=== PATIENT | female | born 1950 | race Caucasian/White ===

== ENCOUNTER 2018-03-29 16:36 | Emergency (ER) | payer BC, MEDICARE ==
[2018-03-29] MEDS ORDERED: NS 0.9% 1000 ML* 1,000 ML IV ONE (17:58)
[2018-03-29 18:30] LABS: ABS Basophils 0 10^3/ul (0-0.2); ABS Eosinophils 0 10^3/ul (0-0.6); ABS Lymphocytes 1.8 10^3/ul (1.0-4.8); ABS Monocytes 0.6 10^3/ul (0-0.8); ABS Neutrophils 5.7 10^3/ul (1.5-7.7); ABS Nucleated RBC 0 10^3/ul; Eosinophil % 0.1 % (0-6); Hematocrit 45 % (35-47); Hemoglobin 15.4 g/dl (12.0-16.0); Lymphocyte % 22.1 % (25-47); Mean Corpuscular HGB Conc 34 g/dl (31-36); Mean Corpuscular Hemoglobin 31 pg (27-31); Mean Corpuscular Volume 91 fL (80-97); Mean Platelet Volume 8.2 um3 (7.4-10.4); Nucleated Red Blood Cells % 0.1; Platelet Count 200 10^3/ul (150-450); Red Blood Count 4.95 10^6/ul (4.0-5.4); Red Cell Distribution Width 13 % (10.5-15); White Blood Count 8.2 10^3/ul (3.5-10.8)
[2018-03-29 18:47] LABS: EGFR Non-African American 88.1 (>60)
[2018-03-29] MEDS ORDERED: Metoclopramide IV* 5 MG/ML 2 ML VIAL IV ONE (18:54)
[2018-03-29] MEDS ORDERED: Iohexol 300* (CONTRAST) 10 ML SDV IV ONE (19:08)
[2018-03-29 19:32] LABS: Urine Appearance Clear; Urine Blood 1+ (Negative); Urine Color Yellow; Urine Ketones 2+ (Negative); Urine Protein Negative (Negative); Urine Specific Gravity 1.025 (1.010-1.030); Urine Urobilinogen Negative (Negative)
--- NOTE | 2018-03-29 20:21 | RAD ---
CLINICAL HISTORY: Lower abdominal pain in a woman with a history of diverticulitis COMPARISON: Similar CT examination July 29, 2011 TECHNIQUE: Contrast enhanced CT examination of the abdomen and pelvis from the lung bases through the initial tuberosities. The patient received 79 mL Omnipaque 300 intravenously prior to imaging.The patient received oral contrast as well prior to imaging. FINDINGS: VISUALIZED LUNG BASES: The visualized lung bases are grossly clear. There is no pleural effusion. ABDOMEN AND PELVIS: The liver, spleen, pancreas and adrenal glands are grossly normal in appearance. The gallbladder is normal. The kidneys are normal in appearance without focal mass, calcification or signs of hydronephrosis. Evaluation of the gastrointestinal tract is limited without oral contrast. There is apparent circumferential thickening of the gastric wall measuring 1.3 cm in diameter (image 18 of 81). The small and large bowel are not distended. The appendix is not discretely visualized. There are scattered rectosigmoid diverticula, some with inspissated contrast, but no definite wall thickening or pericolonic abscess. There is no gross retroperitoneal or mesenteric lymphadenopathy. The pelvic viscera is normal in appearance. The moderately calcified abdominal aorta and iliac arteries are normal in course and diameter. Degenerative changes include multilevel loss of intervertebral disc height involving the lower thoracic and lumbar spine.There are no sinister bone lesions. IMPRESSION: 1. Apparent circumferential thickening of the gastric wall at the level of the gastric fundus. This could be seen in the setting of gastritis or may simply be the consequence of decompression. 2. Diverticulosis without definite inflammatory changes characteristic of diverticulitis. 3. The appendix is not discretely visualized. 4. Additional chronic and degenerative changes described in body the report unlikely to be directly related to the patient's current clinical presentation.
[2018-03-29 20:34] VITALS: BP 113/49
--- NOTE | 2018-03-29 20:38 | ED ---
Madina Daly Gabriel, scribed for Papi Alexander MD on 03/29/18 at 1903 . GI/ HPI - HPI Summary HPI Summary: This patient is a 68 year old F presenting to [facility] accompanied by another woman with a chief complaint of a n/v/d that began two days ago. Pt states she had general malaise that began 03-25-18, the next day she had severe fatigue, and then the following day current symptoms began. The patient rates the pain 3/ 10 in severity. Patient reports ABD cramping. Hx diverticulitis and perforated bowel. - History of Current Complaint Chief Complaint: EDNauseaVomitDiarrh Time Seen by Provider: 03/29/18 18:50 Stated Complaint: VOMITING/DIARRHEA Hx Obtained From: Patient Onset/Duration: Still Present Timing: Constant Severity: Moderate Current Severity: Moderate Pain Intensity: 3 Location of Pain: Diffuse Associated Signs and Symptoms: Positive: Other: - fatigue, general ill feeling - Allergy/Home Medications Allergies/Adverse Reactions: Allergies Allergy/AdvReac Type Severity Reaction Status Date / Time No Known Allergies Allergy Verified 03/29/18 16:42 PMH/Surg Hx/FS Hx/Imm Hx Endocrine/Hematology History: Denies: Hx Coagulopothy, Autoimmune Disease GI History: Reports: Hx Diverticulosis History: Denies: Hx Acute Renal Failure, Hx Benign Prostatic Hyperplasia Musculoskeletal History: Denies: Hx Rheumatoid Arthritis Sensory History: Reports: Hx Contacts or Glasses Opthamlomology History: Reports: Hx Contacts or Glasses EENT History: Denies: Hx Deafness Psychiatric History: Denies: Hx Attention Deficit Hyperactivity Disorder - Cancer History Hx Chemotherapy: No Hx Radiation Therapy: No Infectious Disease History: Yes Infectious Disease History: Denies: Traveled Outside the [place] in Last 30 Days - Family History Known Family History: Negative: Respiratory Disease, Seizure Disorder - Social History Alcohol Use: Occasionally Hx Substance Use: No Substance Use Type: Reports: None Hx Tobacco Use: No Smoking Status (MU): Never Smoked Tobacco Review of Systems Constitutional: Other - general malaise Positive: Fatigue Positive: Abdominal Pain, Vomiting, Diarrhea, Nausea All Other Systems Reviewed And Are Negative: Yes Physical Exam - Summary Physical Exam Summary: VITAL SIGNS: Reviewed. GENERAL: Patient is a well-developed and nourished female who is lying comfortable in the stretcher. Patient is not in any acute respiratory distress. HEAD AND FACE: No signs of trauma. No ecchymosis, hematomas or skull depressions. No sinus tenderness. EYES: PERRLA, EOMI x 2, No injected conjunctiva, no nystagmus. EARS: Hearing grossly intact. Ear canals and tympanic membranes are within normal limits. MOUTH: Oropharynx within normal limits. NECK: Supple, trachea is midline, no adenopathy, no JVD, no carotid bruit, no c- spine tenderness, neck with full ROM. CHEST: Symmetric, no tenderness at palpation LUNGS: Clear to auscultation bilaterally. No wheezing or crackles. CVS: Regular rate and rhythm, S1 and S2 present, no murmurs or gallops appreciated. ABDOMEN: Soft, non-tender. No signs of distention. No rebound no guarding, and no masses palpated. Bowel sounds are normal. EXTREMITIES: FROM in all major joints, no edema, no cyanosis or clubbing. NEURO: Alert and oriented x 3. No acute neurological deficits. Speech is normal and follows commands. SKIN: Dry and warm Triage Information Reviewed: Yes Vital Signs On Initial Exam: Initial Vitals Temp Pulse Resp BP Pulse Ox 99.8 F 84 16 145/76 99 03/29/18 16:39 03/29/18 16:39 03/29/18 16:39 03/29/18 16:39 03/29/18 16:39 Vital Signs Reviewed: Yes Diagnostics - Vital Signs Vital Signs Temp Pulse Resp BP Pulse Ox 03/29/18 16:39 99.8 F 84 16 145/76 99 - Laboratory Lab Results: Lab Results 03/29/18 03/29/18 03/29/18 Range/Units 18:21 18:21 18:21 WBC 8.2 (3.5-10.8) 10^3/ul RBC 4.95 (4.0-5.4) 10^6/ul Hgb 15.4 (12.0-16.0) g/dl Hct 45 (35-47) % MCV 91 (80-97) fL MCH 31 (27-31) pg MCHC 34 (31-36) g/dl RDW 13 (10.5-15) % Plt Count 200 (150-450) 10^3/ul MPV 8.2 (7.4-10.4) um3 Neut % (Auto) 70.4 (38-83) % Lymph % (Auto) 22.1 L (25-47) % [place] % (Auto) 7.1 H (0-7) % Eos % (Auto) 0.1 (0-6) % Baso % (Auto) 0.3 (0-2) % Absolute Neuts (auto) 5.7 (1.5-7.7) 10^3/ul Absolute Lymphs (auto) 1.8 (1.0-4.8) 10^3/ul Absolute Monos (auto) 0.6 (0-0.8) 10^3/ul Absolute Eos (auto) 0 (0-0.6) 10^3/ul Absolute Basos (auto) 0 (0-0.2) 10^3/ul Absolute Nucleated RBC 0 10^3/ul Nucleated RBC % 0.1 Sodium 137 L (139-145) mmol/L Potassium 3.9 (3.5-5.0) mmol/L Chloride 104 (101-111) mmol/L Carbon Dioxide 25 (22-32) mmol/L Anion Gap 8 (2-11) mmol/L BUN 13 (6-24) mg/dL Creatinine 0.67 (0.51-0.95) mg/dL Est GFR ( Amer) 113.3 (>60) Est GFR (Non-Af Amer) 88.1 (>60) BUN/Creatinine Ratio 19.4 (8-20) Glucose 108 H (70-100) mg/dL Lactic Acid 1.2 (0.5-2.0) mmol/L Calcium 9.0 (8.6-10.3) mg/dL Total Bilirubin 0.50 (0.2-1.0) mg/dL AST 20 (13-39) U/L ALT 13 (7-52) U/L Alkaline Phosphatase 54 (34-104) U/L C-Reactive Protein 2.07 (< 5.00) mg/L Total Protein 6.4 (6.4-8.9) g/dL Albumin 3.8 (3.2-5.2) g/dL Globulin 2.6 (2-4) g/dL Albumin/Globulin Ratio 1.5 (1-3) Lipase 21 (11.0-82.0) U/L Result Diagrams: 03/29/18 18:21 03/29/18 18:21 Lab Statement: Any lab studies that have been ordered have been reviewed, and results considered in the medical decision making process. - CT CT ABD/Pelvis CT Interpretation Completed By: Radiologist - 1. Apparent circumferential thickening of the gastric wall at the level of the gastric fundus. This could be seen in the setting of gastritis or may simply be the consequence of decompression. 2. Diverticulosis without definite inflammatory changes characteristic of diverticulitis. 3. The appendix is not discretely visualized. 4. Additional chronic and degenerative changes described in body the report unlikely to be directly related to the patient's current clinical presentation. ED physician has reviewed this radiology report. GIGU Course/Dx - Course Assessment/Plan: This patient is a 68-year-old female who presents to the emergency department with a chief complaint of nausea vomiting diarrhea and lower abdominal pain. The patient reports that shes been having these symptoms since last Wednesday. She reports that the symptoms are similar as when she had the diverticulitis. Blood test results without any significant abnormality of sodium 137 and glucose of 108. In the ED course the patient was given IV fluids for rehydration and she was given Reglan for the nausea and vomiting. Abdominal pelvic CT impression: Apparent circumferential thickening in the gastric wall at the level of the gastric fundus. This could represent the setting of gastritis or maybe consistent with decompression. The particular doses without evidence of diverticulitis. Appendix is not visualized. Since the patient is feeling better and the patient will be discharged home with follow-up with primary care physician. The patient will be given a prescription for Prilosec and Reglan for nausea and vomiting. I discussed all the findings and test results with the patient. Patient was instructed to return to the emergency room immediately if any of the symptoms return or worsens. Plan of care was discussed with the patient and understands and agrees. All questions were answered at patient satisfaction. There were no further complaints or concerns. Lung exam before discharge: CTA B/L. Good air exchange. No wheezing or crackles heard. CVS: S1 and S2 present. No murmurs appreciated. Patient is alert and oriented x 3. Patient is hemodynamically stable. Patient will be discharged home with follow up PCP in the next 2-3 days - Diagnoses Differential Diagnoses - Female: Constipation, Colitis, Diverticulitis, Gastritis, Gastroenteritis (Viral) Provider Diagnoses: Lower abdominal pain, Nausea vomiting and diarrhea Discharge - Sign-Out/Discharge Documenting (check all that apply): Discharge/Admit/Transfer - Discharge Plan Condition: Stable Disposition: HOME Prescriptions: Omeprazole CAP* [Prilosec CAP* 20 MG] 20 mg PO BID #14 cap.dr Ondansetron TAB* [Zofran 4 MG Tab*] 4 mg PO Q6H PRN #10 tab PRN Reason: Vomiting Patient Education Materials: Gastritis (ED), Acute Abdominal Pain (ED) Referrals: Farzana Lawson, [employer]ETING SALES MANAGER [Primary Care Provider] - 3 Days Additional Instructions: RETURN TO THE ER FOR ANY NEW OR WORSENING SYMPTOMS The documentation as recorded by the Madina saavedra Gabriel accurately reflects the service I personally performed and the decisions made by , Papi Alexander MD.
== END 2018-03-29 20:47 | disposition home or self-care (01) ==
LOC: ED 16:36
DX: R10.30 Lower abdominal pain, unspecified (principal); R11.2 Nausea with vomiting, unspecified; R19.7 Diarrhea, unspecified; K57.30 Diverticulosis of large intestine without perforation or abscess without bleeding; Z87.19 Personal history of other diseases of the digestive system
CPT/HCPCS: 36415; 74177; 80053; 81003; 81015; 83605; 83690; 85025; 86140; 96361; 96374; 99283; J2765; Q9967